=== PATIENT | female | born 1955 | race Caucasian/White ===

== ENCOUNTER → 2016-09-20 | Outpatient (CLI) | payer OTHER ==
[2015-06-09 15:07] VITALS: BP 126/72
[~2016-09-20] MED LIST: AMLO5TAB2 PO; BUPR150T8 PO; CHOL10003 PO; HYDR-2679 PO; LISI1TAB5 PO; MELO-150 PO; METF500T4 PO; PANT40TA3 PO
--- NOTE | 2016-09-20 15:11 | KCIC ---
PROCEDURE Two-view chest with three-view left ribs HISTORY Left-sided chest pain for 2 months. COMPARISON Single-view portable AP view only chest x-ray June 08, 2015 images are available but that report is not available. FINDINGS Cardiac silhouette is not enlarged. No focal airspace consolidation. No evidence of pleural effusion. No evidence of pneumothorax. No evidence of a displaced left rib fracture. IMPRESSION No evidence of active disease in the chest. No evidence of displaced left rib fracture. Electronically signed by: Gabino Albrecht MD (September 20, 2016 15:10:01)
== END | disposition home or self-care (01) ==
LOC: KCIC 13:23
PROVIDERS: ATTEND Physician Assistant
DX: R07.89 Other chest pain (principal); R07.81 Pleurodynia
CPT/HCPCS: 71020; 71100

== ENCOUNTER → 2016-09-24 | Outpatient (CLI) | payer OTHER ==
[2015-06-09 15:07] VITALS: BP 126/72
--- NOTE | 2016-09-25 10:03 | KCIC ---
Bilateral digital screening mammograms with CAD: HISTORY Routine screening. COMPARISON Comparison is made to previous studies dated back to 03/31/2013. FINDINGS Breast density category B. The skin and nipples show no abnormalities. No abnormal lymph nodes are seen in the axilla. The breast parenchyma shows scattered fibroglandular density. There continues to be a small focus of asymmetry in the upper outer quadrant of the right breast which is unchanged. There are no new dominant masses, suspicious calcifications or architectural distortions. IMPRESSION No evidence of malignancy. Recommend routine annual mammographic screening. This study was interpreted with the benefit of Computerized Aided Detection (CAD). Mammography is not 100% sensitive in detecting breast cancer. Therefore, a self breast exam and a clinical breast exam are very important. A negative mammogram does not negate a clinically suspicious finding and should not result in a delay in biopsying a clinically suspicious abnormality. BI-RADS category 2: Benign. This patient's information has been entered into a reminder system for the patient to be notified with the results of this examination and a target date for her next mammograms. Electronically signed by: Leyla Enrique MD (September 25, 2016 10:01:41)
== END | disposition home or self-care (01) ==
LOC: KCIC MAMMO 15:27
PROVIDERS: ATTEND Family Medicine
DX: Z12.31 Encounter for screening mammogram for malignant neoplasm of breast (principal)
CPT/HCPCS: G0202; 77067

== ENCOUNTER → 2016-10-21 | Outpatient (CLI) | payer OTHER ==
[2015-06-09 15:07] VITALS: BP 126/72
[~2016-10-21] MED LIST changes: -MELO-150 PO; +MELO15TA23 PO
--- NOTE | 2016-10-21 15:38 | KCIC ---
2 view chest HISTORY: Abnormal lung sounds. COMPARISON: September 20. FINDINGS: Cardiac silhouette is not enlarged. No evidence of pneumothorax. No focal airspace consolidation. No evidence of pleural effusion. IMPRESSION: No evidence of active infiltrate. Electronically signed by: Gabino Albrecht MD (10/21/2016 3:35 PM)
== END | disposition home or self-care (01) ==
LOC: KCIC 14:27
PROVIDERS: ATTEND Physician Assistant
DX: R09.89 Other specified symptoms and signs involving the circulatory and respiratory systems (principal)
CPT/HCPCS: 71020

== ENCOUNTER → 2016-12-20 | Outpatient (CLI) | payer OTHER ==
[2015-06-09 15:07] VITALS: BP 126/72
[~2016-12-20] MED LIST changes: +REGADENOSON 0.4 MG/5 ML DISP.SYRIN. IV ONE
--- NOTE | 2016-12-20 13:54 | RAD ---
APPROVED REPORT Test Type: Pharmacological Stress Nurse/Tech: Christina Myers R.N. Test Indications: chest pain, risk factors Cardiac History: Diabetes, Hypertension Medications: See Electronic Medical Record Medical History: See Electronic Medical Record Resting ECG: NSR Resting Heart Rate: 58 bpm Resting Blood Pressure: 113/68mmHg Pretest Chest Pain: No chest pain Nurse/Tech Notes S1S2, lungs sound clear Consent: The procedure was explained to the patient in lay terms. Informed consent was witnessed. Tevin eout was entered into katena. History and Stress Test performed by Christina Myers R.N. Pharm. Details Pharmacologic stress testing was performed using 0.4mg per 5ml of regadenoson given intravenously ove r 7-10 seconds. Stress Symptoms Nausea POST EXERCISE Reason for Termination: Infusion complete Max HR: 104 bpm Max Blood Pressure: 136/57mmHg Blood Pressure response to exercise: Normal blood pressure response during stress. Chest Pain: No. Arrhythmia: No. ST Change: No. INTERPRETATION Stress EKG Conclusion: Baseline EKG showed sinus rhythm. No ischemic changes at peak stress. No arr hythmias. Imaging Protocol IMAGE PROTOCOL: Rest Tc-99m/stress Tc-99m 1 day Rest: Stress: Viability: Radiopharm.Tc99m AuvkwmxpnTs26u Sestamibi Dose11.4mCi 33.8mCi Duration 20min. 20min. Img Date 12/20/2016 12/20/2016 Inj-Img [id number]. 60min. Rest Admin Site:IV - Right AntecubitalAdministrator:RT Ck (R)(N) Stress Admin Site: IV - Right AntecubitalAdministrator: HUSSEIN Arreaga STRESS DATA End Diast. Vol.69.0mlAv. Heart Rate72.0bpm End Syst. Vol.5.0mlCO Index BSA0.0L/min Myocardial Fkie423.0gEject. Xggpgclh67.0% Stress Rates Pk. Fill Rate3.74EDV/secLVtime Pk. Fill 188.14msec Pk. Empty Rate4.56ESV/secLVtime Pk. Pnfoq878.59msec 05/14 Pk. Fill1.07EDV/sec Stress Scores Regional WT0.00Summed WT0.00 Regional WM0.00Summed WM0.00 Study quality was good. Left Ventricular size was Normal at Rest and Stress. Lung uptake was Normal. Left Ventricular ejection fraction is >80%%. The rest and stress images show normal perfusion, normal contraction and thickening. LV Perf. Quant 17 Seg. SSS0.00 17 Seg. SRS0.00 17 Seg. SDS0.00 Stress Defect Extent (% LAD)0.00Rest Defect Extent (% LAD)0.00Rev. Defect Extent (% LAD)0.00 Stress Defect Extent (% LCX) 0.00Rest Defect Extent (% LCX)0.00Rev. Defect Extent (% LCX)0.00 Stress Defect Extent (% RCA)0.00Rest Defect Extent (% RCA)0.00Rev. Defect Extent (% RCA)0.00 Stress Defect Extent (% MIKE)0.00Rest Defect Extent (% MIKE)0.00Rev. Defect Extent (% MIKE)0.00 Conclusion 1. Regadenoson cardioisotope stress test did not show any evidence of ischemia or infarct. 2. Normal left ventricular systolic function with ejection fraction calculated at >80%. 3. Low risk for cardiac events.
== END | disposition home or self-care (01) ==
LOC: NM 08:30
PROVIDERS: ATTEND Physician Assistant
DX: I49.5 Sick sinus syndrome (principal); R06.09 Other forms of dyspnea; R07.9 Chest pain, unspecified
CPT/HCPCS: 78452; 93017; 96374; 96375; 96376; A9500; J2785

== ENCOUNTER → 2017-10-07 | Outpatient (CLI) | payer OTHER | END | disposition home or self-care (01) | LOC: KCIC 12:23 | DX: M48.07 Spinal stenosis, lumbosacral region (principal) | CPT/HCPCS: 72110 ==

== ENCOUNTER → 2017-10-22 | Outpatient (CLI) | payer OTHER ==
[2017-10-22 13:12] LABS: ISTAT CREATININE 0.8 mg/dL (0.6-1.1)
[2017-10-22] MEDS: GADOBUTROL 7.5 MMOL/7.5 ML VIAL IV (13:12)
== END | disposition home or self-care (01) ==
LOC: KCIC MRI 12:17
DX: M51.36 Other intervertebral disc degeneration, lumbar region (principal); M48.07 Spinal stenosis, lumbosacral region
CPT/HCPCS: 72158; 82565; A9585

== ENCOUNTER → 2017-11-21 | Outpatient (CLI) | payer OTHER | END | disposition home or self-care (01) | LOC: PNCL 09:17 | DX: M48.061 Spinal stenosis, lumbar region without neurogenic claudication (principal); M51.36 Other intervertebral disc degeneration, lumbar region; I10 Essential (primary) hypertension; E11.9 Type 2 diabetes mellitus without complications; Z90.710 Acquired absence of both cervix and uterus | CPT/HCPCS: 99214 ==

== ENCOUNTER → 2017-12-05 | Outpatient (CLI) | payer OTHER ==
[~2017-12-05] MED LIST changes: -AMLO5TAB2 PO; -BUPR150T8 PO; -CHOL10003 PO; -HYDR-2679 PO; +IOHEXOL 180 MG/ML 10 ML VIAL.; +LIDOCAINE 1% PF 2 ML VIAL.; -LISI1TAB5 PO; -MELO15TA23 PO; -METF500T4 PO; -PANT40TA3 PO; -REGADENOSON 0.4 MG/5 ML DISP.SYRIN. IV ONE; +methylPREDNISolone ACETATE 40 MG/ML VIAL.; +methylPREDNISolone ACETATE 80 MG/ML VIAL.
== END | disposition home or self-care (01) ==
LOC: PNCL 08:41
DX: M51.16 Intervertebral disc disorders with radiculopathy, lumbar region (principal); M96.1 Postlaminectomy syndrome, not elsewhere classified; M48.061 Spinal stenosis, lumbar region without neurogenic claudication; I10 Essential (primary) hypertension; E11.9 Type 2 diabetes mellitus without complications; Z90.710 Acquired absence of both cervix and uterus; Z98.890 Other specified postprocedural states; Z79.899 Other long term (current) drug therapy; Z79.84 Long term (current) use of oral hypoglycemic drugs
CPT/HCPCS: 62323; J1030; J1040; Q9965

== ENCOUNTER → 2017-12-25 | Outpatient (CLI) | payer OTHER ==
[2015-06-09 15:07] VITALS: BP 126/72
[~2017-12-25] MED LIST changes: +AMLO5TAB2 PO; +BUPR150T8 PO; +CHOL10003 PO; +HYDR-2679 PO; -IOHEXOL 180 MG/ML 10 ML VIAL.; -LIDOCAINE 1% PF 2 ML VIAL.; +LISI1TAB5 PO; +MELO15TA23 PO; +METF500T5 PO; +PANT40TA3 PO; -methylPREDNISolone ACETATE 40 MG/ML VIAL.; -methylPREDNISolone ACETATE 80 MG/ML VIAL.
--- NOTE | 2017-12-25 15:31 | KCIC ---
Bilateral lower extremity arterial duplex ultrasound 12/25/2017 INDICATION: Claudication. COMPARISON STUDY: None Discussion: Ultrasound evaluation of the major arteries of bilateral lower extremities was performed including color Doppler imaging with spectral analysis. Normal waveforms and velocities are seen throughout the major arteries of the bilateral lower extremities. No focal area of increased velocity suggestive of a hemodynamically significant stenosis is identified. No high-grade stenosis is seen on color Doppler imaging. IMPRESSION: No sonographic evidence of hemodynamically significant stenosis involving visualized major arteries of the bilateral lower extremities Electronically signed by: Shon Pena MD (12/25/2017 3:27 PM) [id number]
== END | disposition home or self-care (01) ==
LOC: KCIC US 08:56
PROVIDERS: ATTEND Physician Assistant Medical
DX: I73.9 Peripheral vascular disease, unspecified (principal)
CPT/HCPCS: 93925

== ENCOUNTER → 2017-12-26 | Outpatient (CLI) | payer OTHER ==
[2015-06-09 15:07] VITALS: BP 126/72
--- NOTE | 2017-12-26 15:20 | PAIN ---
DATE OF SERVICE: 12/26/2017 DIAGNOSES: Lumbar radiculopathy with lumbar degenerative disk disease and post-lumbar laminectomy syndrome. HISTORY OF PRESENT ILLNESS: The patient is a 62-year-old female who returns for followup status post lumbar epidural steroid injection x 1. The patient reports about 80% improvement after the first injection, but the pain in her low back and right lower extremity. The patient reports it is still there to some extent, but only beginning to bother her a little bit. Now, it has been about 3 weeks since her injection, she is still doing very well. The patient reports the pain is a 2 on a scale of 10 at its worst, average and at its least. It is a tingling, aching pain, most improved in the lower leg on the right side. The patient reports she still has some pain radiating around the low back into the anterior medial thigh, medial lower leg, but very minimal. The patient reports it is only there with extensive walking and standing. The patient reports she has been getting up and down much easier, much easier getting out of bed in the morning. She has increased her distance walking, doing household activities. She took a vacation and was able to enjoy with walking and exercise activities. The patient reports it is tingling and aching, but not as weak as it was on the right side, still some significant fatigability in the right leg. PHYSICAL EXAMINATION: VITAL SIGNS: The patient's blood pressure 125/77, pulse 70, respirations 16, temperature is 98.0 degrees Fahrenheit. Height is 5 feet 7 inches and weight is 153 pounds. GENERAL: The patient is awake, alert, oriented, appropriate, very pleasant demeanor. HEENT: Head shows normocephalic, atraumatic. Extraocular movements are intact, symmetrical. Oral cavity: Mucous membranes moist and pink. Dentition is intact. NECK: Shows anterior throat supple without palpable lymphadenopathy noted. Swallow reflex is symmetrical. CHEST: Shows normal with inspection. Breath sounds clear to auscultation bilaterally. HEART: Shows S1, S2 clear. No murmurs auscultated. ABDOMEN: Soft, nontender, nondistended. No palpable organomegaly is noted. No rebound or guarding demonstrated. BACK: Shows spine grossly in the midline. Normal appearing thoracic kyphosis and lumbar lordotic curvature. Lumbar paraspinous musculature shows symmetrical on inspection and palpation shows some moderate tenderness bilaterally, but only diffusely without radiation. Good rotational motion both laterally as well as extension and flexion of lumbar spine without difficulty. EXTREMITIES: Lower extremities show deep tendon reflexes 2+ in the patellar, 1+ tendo-calcaneus tendons. Motor exam is strong with 5/5 dorsiflexion, extension, quadriceps and hamstring flexion. The patient does have mild straight leg raise on the right side at about 45 degrees, which has decreased and relieved completely with knee flexion and radiation into the anterior thigh, left side is negative. The patient is able to walk without favoring right or left lower extremity and has a normal-appearing gait. Options were discussed with the patient. The patient's old chart was reviewed as her current medication regimen and updated. Current review of systems is updated today as well. We will preauthorize the patient for a second lumbar epidural steroid injection. She did very well after the first injection, still with some radicular pain in the right L3-L4 dermatome but doing much better. The patient will continue with stretching and strengthening exercises on her own as she has been doing, continue walking daily as she has been doing as well and we will have her return in approximately 2 weeks for a second lumbar epidural steroid injection at that time. RASHID EVLAZQUEZ MD DR: GAURI/george JOB#: [id number] / [id number]
== END | disposition home or self-care (01) ==
LOC: PNCL 08:55
PROVIDERS: ATTEND Anesthesiology
DX: M51.16 Intervertebral disc disorders with radiculopathy, lumbar region (principal)
CPT/HCPCS: 99212

== ENCOUNTER → 2018-07-31 | Outpatient (CLI) | payer OTHER ==
[2015-06-09 15:07] VITALS: BP 126/72
[~2018-07-31] MED LIST changes: +AMLO5TAB10 PO; -AMLO5TAB2 PO; +METF500T16 PO; -METF500T5 PO
--- NOTE | 2018-07-31 16:29 | KCIC ---
Indication: Left upper anterior rib/chest pain. TECHNIQUE: 2 views of the chest and multiple views of the left ribs. COMPARISON: None FINDINGS: Heart is normal in size. Lungs are clear. No pneumothorax or pleural effusion. Visualized bony thorax is within normal limits. No acute fractures. IMPRESSION: No acute findings. Electronically signed by: Ozzie Beasley DO (07/31/2018 4:26 PM) [facility]
--- NOTE | 2018-07-31 16:29 | KCIC ---
Indication: Left upper anterior rib/chest pain. TECHNIQUE: 2 views of the chest and multiple views of the left ribs. COMPARISON: None FINDINGS: Heart is normal in size. Lungs are clear. No pneumothorax or pleural effusion. Visualized bony thorax is within normal limits. No acute fractures. IMPRESSION: No acute findings. Electronically signed by: Ozzie Beasley DO (07/31/2018 4:26 PM) [facility]
--- NOTE | 2018-07-31 17:18 | KCIC ---
Bilateral digital screening mammograms with 3-D tomosynthesis: Reason for examination: Routine screening. Comparison is made to previous studies dated 09/24/2016 and 08/29/2015. Bilateral mammograms in CC and oblique projections were obtained with 2-D imaging and 3-D tomosynthesis imaging on a [employer] Inspiration unit and reviewed on the workstation. Interpretation was made with the benefit of CAD. The skin and nipples show no abnormalities. No abnormal axillary lymph nodes are seen. The breast parenchyma is predominantly fatty. (Breast density: Category A.) There are no dominant masses, suspicious calcifications or architectural distortion. Impression: No evidence of malignancy. Recommend routine screening. BI-RAD Category 1: Negative. "Our facility is accredited by the [employer] Mammography Program." This patient's information has been entered into a reminder system for the patient to be notified with the results of her examination and a target date for the next mammogram. Electronically signed by: Patricia Enrique MD (07/31/2018 5:15 PM) [id number]
== END | disposition home or self-care (01) ==
LOC: KCIC MAMMO 15:09
PROVIDERS: ATTEND Physician Assistant Medical
DX: Z12.31 Encounter for screening mammogram for malignant neoplasm of breast (principal); R07.81 Pleurodynia; R07.9 Chest pain, unspecified
CPT/HCPCS: 71046; 71100; 77063; 77067

== ENCOUNTER → 2019-11-22 | Outpatient (CLI) | payer OTHER ==
[2015-06-09 15:07] VITALS: BP 126/72
[~2019-11-22] MED LIST changes: +LISI1TAB19 PO; -LISI1TAB5 PO; -PANT40TA3 PO; +PANT40TA77 PO
--- NOTE | 2019-11-22 16:37 | KCIC ---
3 views the bilateral hands without comparison for bilateral hand pain, especially when gripping objects. FINDINGS: There is no fracture, dislocation, or acute osseous abnormality of either hand. Joints and soft tissues are grossly unremarkable. No radiopaque foreign bodies are seen. IMPRESSION: 1. No acute osseous abnormality of either hand. Electronically signed by: Srinivas العلي MD (11/22/2019 4:33 PM) [id number]
--- NOTE | 2019-11-22 16:38 | KCIC ---
3 views the bilateral knees without comparison for bilateral knee pain and swelling, evaluate for arthritis. FINDINGS: There is no fracture, dislocation, or acute osseous abnormality of either knee. Joint spaces are well-maintained. No suprapatellar joint effusions. No radiopaque foreign bodies. Very small patellar enthesophyte on the right. No significant arthritic changes. IMPRESSION: 1. No acute osseous abnormality of either knee. Electronically signed by: Srinivas العلي MD (11/22/2019 4:35 PM) [id number]
== END | disposition home or self-care (01) ==
LOC: KCIC 09:59
PROVIDERS: ATTEND Physician Assistant Medical
DX: M76.51 Patellar tendinitis, right knee (principal); M79.642 Pain in left hand; M79.641 Pain in right hand; M25.561 Pain in right knee; M25.562 Pain in left knee
CPT/HCPCS: 73130; 73562

== ENCOUNTER → 2020-09-26 | Outpatient (CLI) | payer MEDICARE ==
[2015-06-09 15:07] VITALS: BP 126/72
[~2020-09-26] MED LIST changes: +AMLO-186 PO; -AMLO5TAB10 PO; -LISI1TAB19 PO; +LISI1TAB37 PO
--- NOTE | 2020-09-26 14:27 | KCIC ---
EXAM: Pelvis and left hip, 2 views. HISTORY: Pain. COMPARISON: None. FINDINGS: A frontal view of the pelvis and frog-leg view of the left hip are obtained. There is no ac ho-chunk fracture, dislocation or subluxation. There is mild degenerative subchondral sclerosis and subcho ndral cyst formation involving the superior acetabulum and femoral head-neck junction. There is degen erative change, noninstrumented fusion and laminectomy decompression at the lumbosacral junction. IMPRESSION: 1. Mild left hip osteoarthritis. 2. Degenerative and postoperative changes involving the lumbosacral junction. Electronically signed by: Joanna Ruano MD (09/26/2020 2:25 PM) [id number]
== END ==
LOC: KCIC 13:57
PROVIDERS: ATTEND Physician Assistant Medical
DX: M16.12 Unilateral primary osteoarthritis, left hip (principal); M47.817 Spondylosis without myelopathy or radiculopathy, lumbosacral region
CPT/HCPCS: 73501

== ENCOUNTER → 2020-10-12 | Day surgery (SDC) | payer MEDICARE ==
[~2020-10-12] VITALS: Ht 167.6 cm; Wt 70.0 kg
[~2020-10-12] MED LIST changes: +DICL75TA PO; +GABA300C18 PO; +IV RINGERS,LACTATED 1000ML 1,000 ML IV SCH; +PROPOFOL 10 MG/ML (20ML) VIAL. IV ONE
[2020-10-12 12:25] VITALS: BP 127/61
[2020-10-12 14:34] VITALS: BP 110/60
--- NOTE | 2020-10-12 23:53 | CONS ---
DATE OF CONSULTATION: 10/12/2020 GASTROENTEROLOGY CONSULTATION REFERRING PHYSICIAN: Sammy Bhat MD REASON FOR CONSULTATION: Diarrhea. HISTORY OF PRESENT ILLNESS: A 65-year-old female whose past medical history is significant for diabetes, osteoarthrosis, hypertension, history of hysterectomy, eye surgery and back surgery. She is seen with persistent diarrhea, it is worse postprandially. No prior cholecystectomy is noted. The diarrhea did start before metformin was instituted. Had no bleeding. There is no family history of inflammatory bowel disease, celiac disease, or colon cancer. She has not undergone previous studies. With the continued symptoms, she requests additional evaluation. PAST MEDICAL HISTORY: Hypertension, diabetes, status post hysterectomy, eye surgery, and back surgery. ALLERGIES: None. MEDICATIONS: Include amlodipine, diclofenac, gabapentin, hydrocodone, lisinopril and metformin. FAMILY HISTORY: Noncontributory except for high blood pressure with her mother. SOCIAL HISTORY: She is a nondrinker, nonsmoker. REVIEW OF SYSTEMS: HEENT: There is no decreased hearing or visual acuity issues. CARDIAC: There is a history of hypertension. ENDOCRINE: History of diabetes. PULMONARY: No shortness of breath, productive cough, asthma. RENAL: No dysuria, frequency or hematuria. DERMATOLOGIC: No skin rashes or pruritus. HEMATOLOGIC: No bleeding, bruising or coagulopathy. GASTROINTESTINAL: See history of present illness. NEUROLOGIC: No stroke, migraine, neuropathy. PSYCHIATRIC: No mood swings, depression, insomnia. PHYSICAL EXAMINATION: GENERAL: Reveals a well-nourished, well-developed female who is in no acute distress. VITAL SIGNS: Temperature 97.5, pulse 80, respiratory rate 18. LUNGS: Clear. CARDIOVASCULAR: S1, S2, without S3, S4 or appreciable murmur. ABDOMEN: Reveals a soft abdomen with normal bowel sounds. No appreciable hepatosplenomegaly. EXTREMITIES: No cyanosis, clubbing or edema. IMPRESSION: Diarrhea, etiology to be determined, drug-induced collagenous colitis, colon cancer, inflammatory bowel disease, celiac disease is certainly in the differential. Therefore, I would recommend a colonoscopy to further assess. Risks and benefits of the procedure have been discussed. The patient is willing to proceed at this time. AVIS DR: Emma TID: [id number] CC: SAMMY BHAT MD
--- NOTE | 2020-10-17 08:12 | PATHOLOGY ---
[facility] Accession Number: [id number] . 01 Material submitted: . PART A: rectum - RECTAL POLYP BX PART B: colon - RANDOM COLON BX . 01 Clinical history: . DIARRHEA COLONOSCOPY . 02 Diagnosis: A. Colorectal biopsies, rectal polyp: - Hyperplastic polyp. . B. Colonic mucosa, random colon biopsies: - No significant pathologic abnormalities. (JPM:[facility]; 10/16/2020) [facility] 10/16/2020 1649 Local . 02 Comment: Sections of the rectal polyp biopsy reveal a hyperplastic polyp. There are no adenomatous changes or evidence of malignancy. . Sections of the random colon biopsy reveal multiple segments of colonic mucosa. There is no evidence of a chronic destructive colitis, lymphocytic colitis, or collagenous colitis. (JP:sweetie; 10/16/2020) . 02 Electronically signed: . Jonas Almeida MD, Pathologist NPI- [id number] . 01 Gross description: . A. Received in formalin labeled "DeborahWendy, rectal polyp BX" is a short-brown soft tissue fragment measuring 0.4 x 0.3 x 0.1 cm. The specimen is submitted entirely in A1. . B. Received in formalin labeled "Deborah, Wendy, random colon BXs" are multiple short-brown soft tissue fragments measuring in aggregate 2.0 x 0.6 x 0.1 cm. The specimen is submitted entirely in B1. [place] [place] [facility] 10/15/2020 1027 Local . 02 Pathologist provided ICD-10: K62.1, R19.7, Z12.11 . 02 CPT . 070393, [id number] Specimen Comment: A courtesy copy of this report has been sent to [phone], [phone] Specimen Comment: [id number] Specimen Comment: Report sent to / DR ODOM Performed at: [address], [place] [id number] MD Ananda Mitchell MD Phone: [phone] Performed at: 02 [facility] [address] [place], [place] [id number] MD Jonas Almeida MD Phone: [phone]
== END | disposition home or self-care (01) ==
LOC: ENDOS 11:48
PROVIDERS: ATTEND Internal Medicine Gastroenterology
DX: R19.7 Diarrhea, unspecified (principal); K64.0 First degree hemorrhoids; K63.89 Other specified diseases of intestine; K62.1 Rectal polyp; I10 Essential (primary) hypertension; E66.9 Obesity, unspecified; E11.9 Type 2 diabetes mellitus without complications; Z90.710 Acquired absence of both cervix and uterus; Z98.890 Other specified postprocedural states; Z79.899 Other long term (current) drug therapy
CPT/HCPCS: 45380; 88305; J2704

== ENCOUNTER → 2020-10-18 | Outpatient (CLI) | payer MEDICARE ==
[2020-10-12 14:34] VITALS: BP 110/60
[~2020-10-18] MED LIST changes: -IV RINGERS,LACTATED 1000ML 1,000 ML IV SCH; -PROPOFOL 10 MG/ML (20ML) VIAL. IV ONE
--- NOTE | 2020-10-18 08:50 | KCIC ---
INDICATION : Reason: EPIGASTRIC PAIN / Spl. Instructions: / History: COMPARISON: None TECHNIQUE: Multiple ultrasound images obtained through the abdomen in grayscale and color. FINDINGS: Liver: Echogenic. Relatively hypoechoic adjacent to the gallbladder. Gallbladder: 3 mm nodular focus along the wall. IVC: Partially distended at level of liver. Common Bile Duct: Not dilated. Pancreas: Limited visualization secondary to bowel gas. Right Kidney: No hydronephrosis. IMPRESSION: * Liver is echogenic. Nonspecific but can be seen with fatty infiltration. There is a relatively hy poechoic region adjacent to the gallbladder which is commonly secondary to focal fatty sparing. * 3 mm filling defect within the gallbladder which could be from a small polyp or adherent stone. Electronically signed by: Raghav Bhat MD (10/18/2020 8:48 AM) [id number]
--- NOTE | 2020-10-18 10:07 | KCIC ---
Bilateral digital screening mammograms with 3-D tomosynthesis: Reason for examination: Routine screening. Comparison is made to previous studies dated back to 08/29/2015. Bilateral mammograms in CC and oblique projections were obtained with 2-D imaging and 3-D tomosynthes is imaging on a [employer] Inspiration unit and reviewed on the workstation. Interpretation was made with the benefit of CAD. The skin and nipples show no abnormalities. No abnormal axillary lymph nodes are seen. The breast par enchyma shows scattered fibroglandular density. (Breast density: Category B.) There continue to be sm all parenchymal asymmetries bilaterally which are stable. There are no new dominant masses, suspiciou s calcifications or architectural distortion. Impression: No evidence of malignancy. Recommend routine screening. BI-RAD Category 2: Benign. "Our facility is accredited by the [employer] Mammography Program." This patient's information has been entered into a reminder system for the patient to be notified wit h the results of her examination and a target date for the next mammogram. Electronically signed by: Patricia Enrique MD (10/18/2020 10:04 AM) [email or web address]
== END ==
LOC: KCIC US 08:12
PROVIDERS: ATTEND Physician Assistant Medical
DX: Z12.31 Encounter for screening mammogram for malignant neoplasm of breast (principal); R10.13 Epigastric pain
CPT/HCPCS: 76705; 77063; 77067

== ENCOUNTER → 2020-12-25 | Outpatient (CLI) | payer MEDICARE ==
[2020-10-12 14:34] VITALS: BP 110/60
--- NOTE | 2020-12-25 10:06 | KCIC ---
EXAM: Dual energy x-ray absorptiometry (DEXA). HISTORY: ASYMPTOMATIC MENOPAUSAL, OSTEOPOROSIS SCREENING. COMPARISON: None. TECHNIQUE: Dual energy x-ray absorptiometry of the lumbar spine and left hip was performed. Calculat ion of bone mineral density based on standard deviations above or below the expected young adult norm al value (T-score) was completed. FINDINGS: LUMBAR SPINE: The AVG BMD OF the L1-L4 region = 0.975 gm/cm2, T-score = -0.7, Z-score = 1.2. Findings are consistent with normal BMD. Femoral Necks: The BMD of the left femoral neck = 0.742 gm/cm2, T-score = -1.6, Z-score = -0.4. The Findings are consistent with osteopenia. IMPRESSION: 1. Osteopenia of the left femoral neck. Electronically signed by: Vahe Fishre MD (12/25/2020 10:03 AM) [id number]
== END ==
LOC: KCIC DEXA 08:04
PROVIDERS: ATTEND Family Medicine
DX: Z13.820 Encounter for screening for osteoporosis (principal); M85.88 Other specified disorders of bone density and structure, other site; Z78.0 Asymptomatic menopausal state
CPT/HCPCS: 77080